=== PATIENT | male | born 1955 | race Caucasian/White ===

== ENCOUNTER 2016-10-26 07:16 | Outpatient (CLI) | payer BC ==
[2016-10-26 07:44] LABS: #Basophils 0.1 thou/uL (0.0-0.2); #Eosinphils 0.4 thou/uL (0.0-0.7); #Lymphocytes 1.5 thou/uL (1.20-3.40); #Monocytes 0.5 thou/uL (0.11-0.59); %Basophils 1.6 % (0.0-1.0); %Lymphocytes 22.7 % (21.0-51.0); %Monocytes 7.8 % (0.0-10.0); %Neutrophils 61.9 % (42.0-75.0); Hemoglobin 15.7 g/dL (14.0-18.0); Mean Corpuscular HGB CONC 34.3 g/dL (32.0-36.0); Mean Corpuscular Hemoglobin 29.8 pg (27.0-31.0); Mean Platelet Volume 7.6 fL (7.4-10.4); Platelet Count 191 thou/uL (130-400); RBC Distribution Width 11.1 % (11.5-14.5); Red Blood Cell (RBC) Count 5.27 mill/uL (4.70-6.10); White Blood Cell (WBC) Count 6.5 thou/uL (4.8-10.8)
[2016-10-26 07:47] LABS: Bilirubin Negative (Negative); Blood, Urine Trace (Negative); Clarity Clear (Clear); Glucose, Urine (Dipstick) Negative (Negative); Leukocyte Negative (Negative); Nitrite Negative (Negative); Protein, Urine (Dipstick) Negative (Neg-Trace); Urobilinogen 0.2 mg/dL (0.2-1.0); pH, Urine 5.5 (5.0-9.0)
[2016-10-26 07:50] LABS: Bacteria/HPF None Seen HPF (None Seen); RBC/HPF 0-3 HPF (0-3); Squamous Epithelial None Seen HPF (0-3); WBC/HPF None Seen HPF (0-3)
[2016-10-26 07:56] LABS: Hemoglobin A1c 5.3 % (4.0-6.0)
[2016-10-26 08:01] LABS: ALT (SGPT) 22 U/L (8-55); AST (SGOT) 17 U/L (5-34); Albumin 3.9 g/dL (3.5-5.0); Alkaline Phosphatase 60 U/L (40-150); Anion Gap 12 mmol/L (10-20); BUN (Urea Nitrogen) 17 mg/dL (8.4-25.7); Bilirubin, Total 0.5 mg/dL (0.2-1.2); Calc. Creatinine Clearance 0 mL/min (70-130); Calcium 8.9 mg/dL (7.8-10.44); Carbon Dioxide 27 mmol/L (22-29); Cardiac Risk 4.2 (Less than 4.5); Chloride 105 mmol/L (98-107); Cholesterol 192 mg/dl (< 200 Desired); Estimated GFR-MDRD 77; Globulin 2.6 g/dL (2.4-3.5); Glucose 121 mg/dL (70-105); HDL Cholesterol 46 mg/dL (>60 Neg Risk); LDL Cholesterol, Calculated 112 mg/dL; Potassium 4.5 mmol/L (3.5-5.1); Protein, Total 6.5 g/dL (6.0-8.3); Sodium 139 mmol/L (136-145); Triglycerides 169 mg/dL (Less than 150)
[2016-10-26 08:23] LABS: PSA-Asymptomatic (SCREENING) 0.64 ng/mL (0-4.0); Thyroid Stimulating Hormone 1.6398 uIU/mL (0.35-4.94)
[2016-10-26 17:30] LABS: Hep C IgG Ab Non-Reactive (NonReactive); Hep C Index 0.13 S/CO (0-0.79)
== END 2016-10-26 07:17 | disposition home or self-care (01) ==
LOC: NAV LAB 07:16
PROVIDERS: ATTEND Family Medicine
DX: Z12.5 Encounter for screening for malignant neoplasm of prostate (principal); Z11.59 Encounter for screening for other viral diseases; E78.2 Mixed hyperlipidemia; I10 Essential (primary) hypertension
CPT/HCPCS: 36415; 80053; 80061; 81001; 83036; 84443; 85025; 86803; G0103

== ENCOUNTER 2017-01-15 10:47 | Outpatient (CLI) | payer BC ==
--- NOTE | 2017-01-15 13:05 | RAD ---
THREE VIEW LEFT SHOULDER: History: Left shoulder pain. FINDINGS: There is no evidence of acute fracture or dislocation. 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 IMPRESSION: No acute osseous abnormality of the left shoulder. POS: [facility]ORIE
== END 2017-01-15 10:48 | disposition home or self-care (01) ==
LOC: NAV RAD 10:47
PROVIDERS: ATTEND Family Medicine
DX: M25.512 Pain in left shoulder (principal)

== ENCOUNTER 2018-11-12 11:32 | Outpatient (CLI) | payer BC ==
--- NOTE | 2018-11-12 13:22 | RAD ---
SACRUM AND COCCYX THREE VIEWS: 11/12/18 HISTORY: Fall, acute low back pain. FINDINGS/IMPRESSION: No fracture or dislocation is seen. There is a left hip arthroplasty. POS: [facility]
== END 2018-11-12 11:33 | disposition home or self-care (01) ==
LOC: NAV RAD 11:32
PROVIDERS: ATTEND Family Medicine
DX: M54.5 Low back pain (principal); Z96.642 Presence of left artificial hip joint; W17.89XA Other fall from one level to another, initial encounter; Y92.73 Farm field as the place of occurrence of the external cause
CPT/HCPCS: 72220

== ENCOUNTER 2020-02-24 08:14 | Emergency (ER) | payer BC ==
[2020-02-24] MEDS ORDERED: Lidocaine 1% (PF) 30 ML VIAL ONE (08:59)
[2020-02-24] MEDS ORDERED: Bupivacaine 0.5% 10 ML VIAL ONE (08:59)
[2020-02-24] MEDS ORDERED: Boostrix 0.5 ML (Tdap) VIAL ONE (09:12)
--- NOTE | 2020-02-24 09:32 | RAD ---
RIGHT INDEX FINGER 3 VIEWS: Date: 02/24/2020 HISTORY: Injury from trauma. FINDINGS: There is evidence for a nondisplaced vertical fracture through the distal phalanx extending from the tuft towards the distal interphalangeal joint region. Soft tissue injury to the distal index finger. IMPRESSION: Nondisplaced vertical fracture through the distal tuft of the distal phalanx extending towards the di stal interphalangeal joint with extensive soft tissue injury without evidence for an overt metal fore ign body. POS: [facility]
[2020-02-24] MEDS ORDERED: Bacitracin 1 PK ONE (10:45)
[2020-02-24] MEDS ORDERED: Cephalexin 250 MG CAP ONE (11:18)
== END 2020-02-24 11:20 | disposition home or self-care (01) ==
LOC: NAV ERS 08:14
DX: S67.190A Crushing injury of right index finger, initial encounter (principal); S61.210A Laceration without foreign body of right index finger without damage to nail, initial encounter; E78.5 Hyperlipidemia, unspecified; E78.00 Pure hypercholesterolemia, unspecified; I10 Essential (primary) hypertension; Z79.899 Other long term (current) drug therapy; W22.8XXA Striking against or struck by other objects, initial encounter
CPT/HCPCS: 12002; 90471; 90715; J2001; J3490

== ENCOUNTER 2020-12-23 09:20 | Outpatient (CLI) | payer OTHER | END 2020-12-23 09:21 | disposition home or self-care (01) | LOC: NAV RAD 09:20 | PROVIDERS: ATTEND Family Medicine | DX: R07.9 Chest pain, unspecified (principal) ==